=== PATIENT | male | born 2005 | race Caucasian/White ===

== ENCOUNTER 2024-06-06 06:28 | Day surgery (SDC) | payer OTHER, SELFPAY | END 2024-06-06 12:04 | disposition home or self-care (01) | LOC: GI 06:28 | PROVIDERS: ATTENDING PHYSICIAN Internal Medicine Gastroenterology; FAMILY PHYSICIAN Family Medicine | DX: K22.89 Other specified disease of esophagus (principal); K44.9 Diaphragmatic hernia without obstruction or gangrene; R12 Heartburn | CPT/HCPCS: 43239; 88305 ==